=== PATIENT | female | born 1980 | race Caucasian/White ===

== ENCOUNTER 2016-04-07 15:50 | Emergency (ER) | payer BC ==
[2016-04-07 16:04] VITALS: BP 128/83
--- NOTE | 2016-04-07 16:25 | UC ---
Respiratory Complaint HPI - HPI Summary HPI Summary: patient has had a harsh cough for 1 month. No other symptoms, hx of asthma and is 1 month . - History of Current Complaint Chief Complaint: UCRespiratory Stated Complaint: COUGH Time Seen by Provider: 04/07/16 16:13 Hx Obtained From: Patient Hx Last Menstrual Period: 02/14/16 ?: Yes Onset/Duration: Gradual Onset, Lasting Weeks Timing: Constant Severity Initially: Mild Severity Currently: Mild Pain Intensity: 2 Pain Scale Used: 0-10 Numeric Character: Cough: Nonproductive Aggravating Factors: Exertion, Deep Breaths, Recumbent Position Alleviating Factors: Bronchodilator Associated Signs And Symptoms: Positive: Negative - Allergies/Home Medications Allergies/Adverse Reactions: Allergies Allergy/AdvReac Type Severity Reaction Status Date / Time No Known Allergies Allergy Verified 04/07/16 15:58 PMH/Surg Hx/FS Hx/Imm Hx Previously Healthy: Yes Respiratory History Of: Reports: Asthma - mild - Surgical History Surgical History: Yes Surgery Procedure, Year, and Place: - Family History Known Family History: Negative: Hypertension - Social History Alcohol Use: None Substance Use Type: None Smoking Status (MU): Former Smoker When Did the Patient Quit Smoking/Using Tobacco: 16 years ago - Immunization History Most Recent Tetanus Shot: 5 years ago Review of Systems Constitutional: Negative Skin: Negative Eyes: Negative ENT: Negative Respiratory: Cough Cardiovascular: Negative Gastrointestinal: Negative Genitourinary: Negative Motor: Negative Neurovascular: Negative Musculoskeletal: Negative Neurological: Negative Psychological: Negative All Other Systems Reviewed And Are Negative: Yes Physical Exam Triage Information Reviewed: Yes Appearance: Well-Appearing, Well-Nourished, Pain Distress Vital Signs: Initial Vital Signs Temp 98.2 F 04/07/16 15:59 Pulse 81 04/07/16 15:59 Resp 18 04/07/16 15:59 BP 128/83 04/07/16 15:59 Pulse Ox 100 04/07/16 15:59 Vital Signs Reviewed: Yes Eye Exam: Normal Eyes: Positive: Conjunctiva Clear ENT Exam: Normal ENT: Positive: Normal ENT inspection, Pharynx normal, TMs normal Dental Exam: Normal Neck exam: Normal Neck: Positive: Supple, Nontender, No Lymphadenopathy Respiratory Exam: Normal Respiratory: Positive: Chest non-tender, Lungs clear, No accessory muscle use, Wheezing, Inspiration Cardiovascular Exam: Normal Cardiovascular: Positive: RRR, No Murmur, Pulses Normal Abdominal Exam: Normal Abdomen Description: Positive: Nontender, No Organomegaly, Soft Bowel Sounds: Positive: Present Musculoskeletal Exam: Normal Musculoskeletal: Positive: Strength Intact, ROM Intact, No Edema Neurological Exam: Normal Neurological: Positive: Alert, Muscle Tone Normal Psychological Exam: Normal Skin Exam: Normal UC Diagnostic Evaluation - Laboratory O2 Sat by Pulse Oximetry: 100 Respiratory Course/Dx - Course Course Of Treatment: history obtained, exam performed, medication and spacer ordered. - Differential Dx/Diagnosis Provider Diagnoses: bronchospasm Discharge - Discharge Plan Condition: Stable Disposition: HOME Prescriptions: Albuterol HFA INHALER* [Ventolin HFA Inhaler*] 1 - 2 puff INH Q4H PRN #1 mdi PRN Reason: Cough Patient Education Materials: Bronchospasm (ED) Referrals: Rosalina Tyson [Primary Care Provider] - Additional Instructions: Take the medication as prescribed. Use the spacer. Get plenty of fluids and rest.
== END 2016-04-07 16:40 | disposition home or self-care (01) ==
LOC: UCCORT 15:50
DX: J45.901 Unspecified asthma with (acute) exacerbation (principal); Z87.891 Personal history of nicotine dependence
CPT/HCPCS: 99212; G0463

== ENCOUNTER 2017-01-29 03:42 | Inpatient (IN) | payer BC ==
[~2017-01-29 03:42] MED LIST: Buffered Lidocaine 0.9% SYRIN* 5 ML/SYR SYRINGE INTRADERM ONE
[2017-01-29] MEDS ORDERED: Famotidine IV* 10 MG/ML 2 ML (20 mg) IV ONE (06:00)
[2017-01-29] MEDS ORDERED: Famotidine IV* 10 MG/ML 2 ML (20 mg) ONE (06:53)
[2017-01-29] MEDS ORDERED: ceFAZolin 2 GM PREMIX (*) 2 GM/50 ML BAG IVPB ONE (06:53)
[2017-01-29] MEDS ORDERED: KETAMINE HCL* 50 MG/ML 10 ML VIAL ONE (07:34)
[2017-01-29] MEDS ORDERED: Midazolam* 1 MG/ML 5 ML VIAL (5 MG) ONE (07:34)
[2017-01-29] MEDS ORDERED: fentaNYL* 50 MCG/ML 2 ML VIAL (100 MCG VIAL) ONE (07:34)
[2017-01-29] MEDS ORDERED: Morphine PF AMP (0.5MG/ML)* 5 MG/10 ML AMP ONE (07:35)
[2017-01-29] MEDS ORDERED: Nalbuphine* 20 MG/ML 1 ML VIAL IV PRN (08:28)
[2017-01-29] MEDS ORDERED: Ondansetron INJ* 2 MG/ML VIAL IV PRN (08:28)
[2017-01-29] MEDS ORDERED: Naloxone* 0.4 MG/ML 1 ML VIAL IV PRN (08:28)
[2017-01-29] MEDS ORDERED: PROCHLORPERAZINE INJ 5 MG/ML 2 ML VIAL IV PRN (08:28)
[2017-01-29] MEDS ORDERED: Scopolomine PATCH Remove* 1 NOTE MISC PATCH OFF PRN (08:28)
[2017-01-29] MEDS ORDERED: diPHENhydraMINE IV* 50 MG/ML 1 ml VIAL (BENADRYL) IV PRN (08:28)
[2017-01-29] MEDS ORDERED: oxyCODONE/Acetamin 5/325 MG* TAB PO PRN (08:28)
[2017-01-29] MEDS ORDERED: fentaNYL* 50 MCG/ML 2 ML VIAL (100 MCG VIAL) IV PRN (08:31)
[2017-01-29] MEDS ORDERED: EPHEDrine (Pressors)* 50 MG/ML VIAL ONE (09:09)
[2017-01-29] MEDS ORDERED: Ondansetron INJ* 2 MG/ML VIAL ONE (09:09)
[2017-01-29] MEDS ORDERED: OXYTOCIN* 10 UNITS/ML 1 ML VIAL ONE (09:09)
[2017-01-29] MEDS ORDERED: Phenylephrine IV* 40 MCG/ML 10 ML SYRINGE ONE (09:09)
[2017-01-29] MEDS ORDERED: Scopolamine 1.5 mg* PATCH ONE (09:09)
[2017-01-29] MEDS ORDERED: Dexamethasone IV* 4 MG/ML 1 ML (4 MG) ONE (09:09)
[2017-01-29] MEDS ORDERED: Dibucaine 1% 28.35 GM TUBE PR PRN (09:37)
[2017-01-29] MEDS ORDERED: Glycerin ADULT SUPP PR PRN (09:37)
[2017-01-29] MEDS ORDERED: Witch Hazel PAD* JAR TOPICAL PRN (09:37)
[2017-01-29] MEDS ORDERED: Zolpidem TAB* 5 MG PO PRN (09:37)
[2017-01-29] MEDS: Docusate CAP* 100 MG PO SCH ×2 (13:22→22:32)
[2017-01-29] MEDS: Simethicone TAB* 80 MG TAB.CHEW PO SCH ×3 (13:22→22:32)
--- NOTE | 2017-01-29 23:35 | OP ---
DATE OF OPERATION: 01/29/17 - ROOM #[id number] DATE OF : 84 SURGEON: Tesha Garcia MD INTEGRATED PROGRAM TEACHER: Sanya Jackson CNM PRE-OP DIAGNOSES: Intrauterine gestation at 39 weeks gestational age, prior section, declines trial of labor after section, desires permanent sterilization. POST-OP DIAGNOSES: Intrauterine gestation at 39 weeks gestational age, prior section, declines trial of labor after section, desires permanent sterilization. OPERATIVE PROCEDURE: Repeat lower transverse section and bilateral tubal ligation. ESTIMATED BLOOD LOSS: 700 mL. FLUIDS: Crystalloid. FINDINGS: Female infant, weight 7 pounds 11 ounces, Apgars of 8 and 9. Normal appearing uterus, ovaries, and tubes. Normal appearing placenta. COMPLICATIONS: None. COUNTS: All correct. DESCRIPTION OF PROCEDURE: After informed consent was signed, the patient was taken to the operating room where she was given spinal anesthesia that was found to be adequate. She was prepped and draped in the dorsal supine position with a leftward tilt. Pfannenstiel skin incision was made with the scalpel and carried down to the underlying layer of fascia with the scalpel. The fascial incision was extended laterally with the Lehman scissors. The rectus muscles were then in the midline and the peritoneum was entered bluntly. A bladder flap was created in the vesicouterine peritoneum with the Metzenbaum scissors. A bladder blade was inserted and a transverse incision was made in the lower uterine segment with the scalpel. The incision was extended superiorly and inferiorly with blunt pressure. The 's head was then delivered with fundal pressure followed by the shoulders and the rest of the body. After 30 seconds, the cord was clamped x2 and cut and the baby was handed to the performance consultant. Cord blood was collected, then the placenta was delivered with fundal massage and gentle cord traction. The uterus was exteriorized and cleared of clots and debris. The uterine incision was closed with 0 Vicryl in a running locked fashion with the second layer of suture imbricating the first. The abdomen was irrigated. Attention was then turned to the patient's tubes after desire for permanent sterilization was confirmed once more. First, the patient's right tube was grasped. Two Rasheeda clamps were placed over the fimbriated end and 0 plain suture was then used to tie off the distal end of the tube, it was double suture ligated. The distal end of the tube was then removed. Good hemostasis was noted. Attention was turned to the left tube where the distal end of the tube was grasped with Rasheeda clamps x2. It was double suture ligated with 0 plain and the tube was removed with Metzenbaum scissors. Good hemostasis was noted once again. The uterus was then placed back into the abdominal cavity. Good hemostasis was observed over the uterine incision. The peritoneum was then closed with 3-0 chromic in a running unlocked fashion. The fascia was closed with 0 Vicryl in a running unlocked fashion. Two interrupted sutures of 3-0 chromic were placed in subcuticular fat, then the skin was closed with 4-0 Monocryl in a running subcuticular fashion. Incision was cleaned. Mastisol and Steri-Strips were placed, covered by a dressing. The patient was moved to the stretcher and taken to the recovery room in stable condition. [id number]/[facility] #: [id number] ISABELA
[2017-01-30] MEDS ORDERED: Acetaminophen TAB* 325 MG PO PRN (00:30)
[2017-01-30] MEDS ORDERED: oxyCODONE/Acetamin 5/325 MG* TAB PO PRN ×2 (00:30)
[2017-01-30] MEDS: Ketorolac INJ* 30 MG/ML 1 ML VIAL IV PRN ×2 (01:08→09:19)
[2017-01-30 08:25] LABS: Hematocrit 35 % (35-47); Hemoglobin 11.8 g/dl (12.0-16.0); Mean Corpuscular HGB Conc 34 g/dl (31-36); Mean Corpuscular Hemoglobin 30 pg (27-31); Mean Corpuscular Volume 90 fL (80-97); Mean Platelet Volume 10 um3 (7.4-10.4); Red Blood Count 3.86 10^6/ul (4.0-5.4); Red Cell Distribution Width 13 % (10.5-15); White Blood Count 15.4 10^3/ul (3.5-10.8)
[2017-01-30] MEDS ORDERED: Ferrous Gluconate TAB* 324 MG TAB PO SCH (09:00)
[2017-01-30] MEDS: Docusate CAP* 100 MG PO SCH ×3 (09:20→21:09)
[2017-01-30] MEDS: Simethicone TAB* 80 MG TAB.CHEW PO SCH ×4 (09:20→21:09)
[2017-01-30] MEDS: Ibuprofen TAB* 600 MG PO PRN (17:20)
[2017-01-31] MEDS: Ibuprofen TAB* 600 MG PO PRN ×2 (00:36→08:01)
[2017-01-31] MEDS: Docusate CAP* 100 MG PO SCH (08:01)
[2017-01-31] MEDS: Simethicone TAB* 80 MG TAB.CHEW PO SCH (08:01)
[2017-01-31 09:03] VITALS: BP 117/85
== END 2017-01-31 10:37 | disposition home or self-care (01) | DRG 540 ==
LOC: UNDOADMIN 03:42 → MCHOB 03:42
PROVIDERS: ADMIT Obstetrics & Gynecology; ATTEND Obstetrics & Gynecology
PROC: 0UB70ZZ Excision of Bilateral Fallopian Tubes, Open Approach (ICD-10-PCS; 2017-01-29)
PROC: 10D00Z1 Extraction of Products of Conception, Low, Open Approach (ICD-10-PCS; principal; 2017-01-29 07:45)
DX: O34.211 Maternal care for low transverse scar from previous cesarean delivery (principal); O99.824 Streptococcus B carrier state complicating childbirth; Z3A.39 39 weeks gestation of pregnancy; Z37.0 Single live birth; Z30.2 Encounter for sterilization
CPT/HCPCS: 36415; 85025; 88302; A9270-GY; J0690; J1100; J1885; J2250; J2405; J2590; J3010